=== PATIENT | male | born 1965 | race Caucasian/White ===

== ENCOUNTER 2022-07-31 18:04 | Emergency (ER) | payer MEDICARE, SELFPAY ==
[2022-07-31 18:19] VITALS: BP 153/89; PULSE 56; RESP 16; TEMP 36.6; O2SAT 98
--- NOTE | 2022-07-31 18:45 | ED.URI ---
HPI - URI/Sore Throat General Chief Complaint: Unspecified Stated Complaint: Unspecified Time Seen by Provider: 07/31/22 18:45 Source: patient, RN notes reviewed and old records reviewed Mode of arrival: ambulatory Limitations: no limitations History of Present Illness HPI Narrative: 57year old male who presents to [facility] care with concern for COVID exposure from daughter who he worked with on Friday who has since tested positive for COVID. Patient states that he does have some cough, denies any shortness of breath or any fevers, chills or sweats. Patient states that he has had COVID vaccinations X3,no flu shot received. Patient reports history of cardiac disease, hYpertension, and diabetes. Patient is daily tobacco user of 1ppd for the past 20 years. MD elicited complaint: cough and other (covid exposure) Pertinent past history: other (heart stents, CAD, diabetes.) Onset (ago): day(s) (exposure 2 days ago) Able to tolerate fluids by mouth: Yes Related Data Home Medications Medication Instructions Recorded Confirmed amlodipine 10 mg tablet 10 mg PO DAILY 07/31/22 08/02/22 atorvastatin 40 mg tablet 40 mg PO DAILY 07/31/22 08/02/22 furosemide 40 mg tablet 40 mg PO DAILY 07/31/22 08/02/22 hydralazine 50 mg tablet 50 mg PO TID 07/31/22 08/02/22 losartan 100 mg tablet 100 mg PO DAILY 07/31/22 08/02/22 metoprolol succinate 50 mg 50 mg PO DAILY 07/31/22 08/02/22 tablet,extended release 24 hr ticagrelor 90 mg tablet (Brilinta) 90 mg PO DAILY 07/31/22 08/02/22 Allergies Allergy/AdvReac Type Severity Reaction Status Date / Time No Known Allergies Allergy Verified 07/31/22 18:49 Review of Systems Review of Systems: CONSTITUTIONAL: Denies fever, chills, or sweats. EYES: Denies visual changes, redness, or discharge. ENT: Denies rhinorrhea, congestion, sore throat, or otalgia. CARDIOVASCULAR: Denies chest pain, palpitations, or edema. RESPIRATORY: Reports some cough denies any dyspnea. GASTROINTESTINAL: Denies abdominal pain, nausea, vomiting, or diarrhea. GENITOURINARY: Denies dysuria or hematuria. SKIN: Denies rash or itching. MUSCULOSKELETAL: Denies back pain, joint pain, or myalgia. NEUROLOGIC: Denies headache, numbness, or weakness. PSYCHIATRIC: Denies anxiety or depression. All systems reviewed & are unremarkable except as noted in HPI and below PMFSH Past Medical History Medical History (Updated 08/05/22 @ 11:11 by Rebeka Santana NP) Body fluid retention CAD (coronary artery disease) Diabetes Elevated cholesterol Hypertension Myocardial infarction Surgical History Surgical History (Updated 08/05/22 @ 11:02 by Rebeka Santana NP) History of heart artery stent Family History Family History (Updated 02/19/12 @ 10:32 by DOCTOR UNKNOWN) Other Diabetes mellitus Family history of coronary artery disease Family history of lung cancer Family history of malignant neoplasm of male breast Hypertension Social History Social History (Updated 08/05/22 @ 11:01 by Rebeka Santana NP) Smoking packs per day: 1 Smoking cigarettes per day: 20.0 Years smoked: 20 Smoking pack-years: 20.00 Alcohol intake: never Substance use type: does not use Living arrangements: with family Gender identity (if verbalized by the patient): Male Comments At time of signature, agree with nursing past medical, surgical, social and family history. There is no relevant family history pertinent to the presenting complaint Exam Narrative: GENERAL: Well-appearing, well-nourished, and in no acute distress. HEAD: Normocephalic, atraumatic. EYES: PERRLA and EOMI. ENT: Nares clear, no rhinorrhea or epistaxis. Mucous membranes moist.TM's normal with good light reflex, throat pink with no lesions or exudates noted. NECK: Supple.no lymphadenopathy CHEST: Clear to auscultation. No respiratory distress. occasional dry cough, SAO2 98% on room air HEART: Regular rate and rhythm. No murmur heard. Normal peripheral pul
[2022-08-01 20:17] LABS: SARS-CoV-2 RNA PCR Negative
== END 2022-07-31 19:20 | disposition home or self-care (01) ==
PROVIDERS: Emergency Provider Registered Nurse; PCP Family Medicine
DX: Z20.822 Contact with and (suspected) exposure to COVID-19 (principal); I25.10 Atherosclerotic heart disease of native coronary artery without angina pectoris; Z95.5 Presence of coronary angioplasty implant and graft; E78.00 Pure hypercholesterolemia, unspecified; I10 Essential (primary) hypertension; I25.2 Old myocardial infarction; E11.9 Type 2 diabetes mellitus without complications
CPT/HCPCS: 99211; G0463; U0003; U0005